=== PATIENT | male | born 1970 | race Caucasian/White ===

== ENCOUNTER → 2017-04-01 | Outpatient (CLI) | payer BC | LOC: HEART 5 08:31 | DX: R07.9 Chest pain, unspecified (principal); F17.200 Nicotine dependence, unspecified, uncomplicated | CPT/HCPCS: 78452; 93306; A9502 ==

== ENCOUNTER → 2021-03-31 | Day surgery (SDC) | payer BC ==
[~2021-03-31] MED LIST: MELOXICAM15 MG PO
== END | disposition home or self-care (01) ==
LOC: OR 05:20
DX: K52.9 Noninfective gastroenteritis and colitis, unspecified (principal); N40.0 Benign prostatic hyperplasia without lower urinary tract symptoms; E78.5 Hyperlipidemia, unspecified; M16.12 Unilateral primary osteoarthritis, left hip; M41.9 Scoliosis, unspecified; Z87.891 Personal history of nicotine dependence; Z79.899 Other long term (current) drug therapy
CPT/HCPCS: J2704; J7120